=== PATIENT | female | born 1975 | race Caucasian/White ===

== ENCOUNTER 2016-11-10 09:05 | Emergency (ER) | payer OTHER ==
[~2016-11-10 09:05] MED LIST: ESTRACE1 MG PO; KLONOPIN TAB 00.5 MG PO; LEVOTHYROXINE25 MCG PO; LORTAB 5-325 M1 EACH PO; NORCO 5-325 TA1 EACH PO; ONDANSETRON ODT8 MG PO; PROMETHAZINE HC25 M1 PO; TOPAMAX 100 MG100 MG PO; VITAMIN B-12100 MCG PO; VITAMIN D35000 UNI1 PO; WELCHOL625 MG PO; ZOLOFT50 MG PO
[2016-11-10 10:02] LABS: HEMOGLOBIN 12.3 gm/dl (12.3-15.3); RED BLOOD COUNT 3.83 M/UL (4.00-5.10); WHITE BLOOD COUNT 7.9 K/UL (4.5-11.0)
[2016-11-10 10:23] LABS: BUN/CREATININE RATIO 18 (0-10)
[2017-05-07] MEDS ORDERED: NORFLEX 100 MG100 MG PO (10:34)
[2017-05-07] MEDS ORDERED: FLEXERIL 10 MG10 MG PO (10:35)
[2017-05-07] MEDS ORDERED: ROPINIROLE HCL1 MG PO (10:35)
[2017-05-07] MEDS ORDERED: [UNRECOGNIZED DRUG - OTHER] PO (10:38)
[2017-05-07] MEDS ORDERED: PANTOPRAZOLE SO40 MG PO (10:39)
[2017-05-07] MEDS ORDERED: DULOXETINE HCL60 MG PO (10:39)
[2017-05-08] MEDS ORDERED: PERCOCET 10-321 EACH PO ×2 (14:24)
[2017-05-08] MEDS ORDERED: LOVENOX40 MG/0.4 SQ (14:25)
== END 2016-11-10 13:35 | disposition home or self-care (01) ==
LOC: ER1 09:05
PROVIDERS: Student in an Organized Health Care Education/Training Program
DX: R10.11 Right upper quadrant pain (principal); R91.8 Other nonspecific abnormal finding of lung field; R11.0 Nausea; Z90.49 Acquired absence of other specified parts of digestive tract; F17.200 Nicotine dependence, unspecified, uncomplicated; Z88.5 Allergy status to narcotic agent; Z79.899 Other long term (current) drug therapy
CPT/HCPCS: 71020; 80053; 81001; 82150; 83690; 85025; 87086; 96374; 99284; J1885; J7040; J7050; Q9962

== ENCOUNTER 2016-11-20 09:21 | Emergency (ER) | payer OTHER ==
[2016-11-20 10:36] LABS: HEMOGLOBIN 11.7 gm/dl (12.3-15.3); RED BLOOD COUNT 3.66 M/UL (4.00-5.10)
[2016-11-20 10:47] LABS: BUN/CREATININE RATIO 13 (0-10)
[2017-05-07] MEDS ORDERED: NORFLEX 100 MG100 MG PO (10:34)
[2017-05-07] MEDS ORDERED: ROPINIROLE HCL1 MG PO (10:35)
[2017-05-07] MEDS ORDERED: FLEXERIL 10 MG10 MG PO (10:35)
[2017-05-07] MEDS ORDERED: [UNRECOGNIZED DRUG - OTHER] PO (10:38)
[2017-05-07] MEDS ORDERED: PANTOPRAZOLE SO40 MG PO (10:39)
[2017-05-07] MEDS ORDERED: DULOXETINE HCL60 MG PO (10:39)
[2017-05-08] MEDS ORDERED: PERCOCET 10-321 EACH PO ×2 (14:24)
[2017-05-08] MEDS ORDERED: LOVENOX40 MG/0.4 SQ (14:25)
== END 2016-11-20 11:50 | disposition home or self-care (01) ==
LOC: ER1 09:21
PROVIDERS: Emergency Medicine
DX: K29.70 Gastritis, unspecified, without bleeding (principal); K44.9 Diaphragmatic hernia without obstruction or gangrene; Z90.49 Acquired absence of other specified parts of digestive tract
CPT/HCPCS: 36415; 74022; 80053; 81001; 82150; 82550; 82553; 83690; 83874; 84484; 85025; 93005; 96365; 96375; 99284; J1200; J1642; J2270; J2405; J2765

== ENCOUNTER → 2017-01-05 | Outpatient (CLI) | payer OTHER ==
[~2017-01-05] MED LIST changes: +DULOXETINE HCL60 MG PO; +FLEXERIL 10 MG10 MG PO; +LOVENOX40 MG/0.4 SQ; +NORFLEX 100 MG100 MG PO; +PANTOPRAZOLE SO40 MG PO; +PERCOCET 10-321 EACH PO; +ROPINIROLE HCL1 MG PO; +[UNRECOGNIZED DRUG - OTHER] PO
== END ==
LOC: CT 08:59
DX: R33.9 Retention of urine, unspecified (principal)

== ENCOUNTER → 2017-05-01 | Outpatient (CLI) | payer OTHER ==
[~2017-05-01] MED LIST changes: -DULOXETINE HCL60 MG PO; -FLEXERIL 10 MG10 MG PO; -LOVENOX40 MG/0.4 SQ; -NORFLEX 100 MG100 MG PO; -PANTOPRAZOLE SO40 MG PO; -PERCOCET 10-321 EACH PO; -ROPINIROLE HCL1 MG PO; -[UNRECOGNIZED DRUG - OTHER] PO
== END ==
LOC: MRI 04-30 13:00
DX: M54.16 Radiculopathy, lumbar region (principal); M53.3 Sacrococcygeal disorders, not elsewhere classified; R20.0 Anesthesia of skin; R32 Unspecified urinary incontinence; M54.30 Sciatica, unspecified side; M25.551 Pain in right hip; M25.552 Pain in left hip; R10.2 Pelvic and perineal pain; M51.86 Other intervertebral disc disorders, lumbar region; M99.76 Connective tissue and disc stenosis of intervertebral foramina of lower extremity; S32.592D Other specified fracture of left pubis, subsequent encounter for fracture with routine healing; M84.352D Stress fracture, left femur, subsequent encounter for fracture with routine healing
CPT/HCPCS: 72148; 73721

== ENCOUNTER 2021-03-31 12:51 | Emergency (ER) | payer OTHER ==
[~2021-03-31 12:51] MED LIST changes: +24HR ALLERGY REL5 MG PO; +ASPIR 8181 MG PO; +AUGMENTIN 875-1 EACH PO; +BENTYL 10MG CAP10 MG PO; +BENTYL 20MG TAB20 MG PO; +BUSPAR 10MG10 MG PO; +CHANTIX1 EACH PO; +DULOXETINE HCL60 MG PO; +EMBEDA ER 60-21 EACH PO; +FLAGYL500 MG PO; +FLEXERIL 10 MG10 MG PO; +K-DUR TAB 20 M20 MEQ PO; +LIPITOR TAB 2020 MG PO; +LOVENOX40 MG/0.4 SQ; +METOPROLOL TART25 MG PO; +MICROZIDE12.5 MG PO; +NITROSTAT0.4 MG SL; +NORFLEX 100 MG100 MG PO; +NORVASC 5 MG TAB5 MG PO; +PANTOPRAZOLE SO40 MG PO; +PERCOCET 10-321 EACH PO; +PERCOCET 7.5-31 EACH PO; +ROPINIROLE HCL1 MG PO; +WELLBUTRIN SR150 M1 PO; +ZETIA10 MG PO; +ZITHROMAX500 MG PO; +ZOFRAN4 MG PO; +[UNRECOGNIZED DRUG - OTHER] PO
[2021-03-31 14:01] LABS: HEMOGLOBIN 17.9 gm/dl (12.3-15.3); RED BLOOD COUNT 5.02 M/UL (4.00-5.10); WHITE BLOOD COUNT 8.8 K/UL (4.5-11.0)
[2021-03-31 14:27] LABS: BUN/CREATININE RATIO 4 (0-10)
[2021-03-31] MEDS ORDERED: IBUPROFEN600 MG PO (19:00)
[2021-03-31] MEDS ORDERED: OMNICEF 300 MG300 MG PO (19:00)
== END 2021-03-31 19:01 | disposition home or self-care (01) ==
LOC: ER1 12:51
PROVIDERS: Physician Assistant Medical
DX: R07.81 Pleurodynia (principal); N39.0 Urinary tract infection, site not specified; R79.89 Other specified abnormal findings of blood chemistry; E78.5 Hyperlipidemia, unspecified; F17.200 Nicotine dependence, unspecified, uncomplicated; Z88.1 Allergy status to other antibiotic agents
CPT/HCPCS: 71101; 80053; 81001; 82550; 82553; 83690; 83735; 83874; 84484; 85025; 85379; 87086; 93005; 96374; 96375; 99284; J0696; J1885; Q9967

== ENCOUNTER 2021-04-22 05:51 | Emergency (ER) | payer OTHER ==
[~2021-04-22 05:51] MED LIST changes: +IBUPROFEN600 MG PO; +OMNICEF 300 MG300 MG PO
[2021-04-22 08:52] LABS: HEMOGLOBIN 15.7 gm/dl (12.3-15.3); RED BLOOD COUNT 4.7 M/UL (4.00-5.10); WHITE BLOOD COUNT 8.6 K/UL (4.5-11.0)
[2021-04-22 09:12] LABS: BUN/CREATININE RATIO 12 (0-10)
[2021-04-22] MEDS ORDERED: ZOFRAN ODT 4 MG4 MG SL (11:22)
[2021-04-22] MEDS ORDERED: TORADOL 10 MG T10 MG PO (11:22)
== END 2021-04-22 11:55 | disposition home or self-care (01) ==
LOC: ER1 05:51
PROVIDERS: Physician Assistant
DX: R07.9 Chest pain, unspecified (principal); R10.11 Right upper quadrant pain; R11.0 Nausea; F17.200 Nicotine dependence, unspecified, uncomplicated; Z90.49 Acquired absence of other specified parts of digestive tract; Z88.1 Allergy status to other antibiotic agents; Z86.16 Personal history of COVID-19
CPT/HCPCS: 71045; 80053; 81001; 82550; 82553; 83874; 84484; 85025; 85379; 93005; 96374; 96375; 99284; J1885; J2405

== ENCOUNTER 2021-10-07 11:58 | Emergency (ER) | payer OTHER ==
[~2021-10-07 11:58] MED LIST changes: +TORADOL 10 MG T10 MG PO; +ZOFRAN ODT 4 MG4 MG SL
[2021-10-07 13:35] LABS: HEMOGLOBIN 14.4 gm/dl (12.3-15.3); RED BLOOD COUNT 4.36 M/UL (4.00-5.10); WHITE BLOOD COUNT 5.2 K/UL (4.5-11.0)
[2021-10-07 13:47] LABS: BUN/CREATININE RATIO 6 (0-10)
[2021-10-07 16:19] LABS: RBC (AUTOMATED) 2500 10^6 (0); WBC (AUTOMATED 600 10^3 (0-5)
[2021-10-07 16:32] LABS: ESCHERICHIA COLI K1 Not Detected (Negative); HAEMOPHILUS INFLUENZAE Not Detected (Negative); LISTERIA MONOCYTOGENES Not Detected (Negative); NEISERRIA MENINGITIDIS Not Detected (Negative)
[2021-10-07 16:33] LABS: CRYPTOCOCCUS NEOFORMANS/GATTII Not Detected (Negative); CYTOMEGALOVIRUS Not Detected (Negative); ENTEROVIRUS Not Detected (Negative); HERPES SIMPLEX VIRUS 1 Not Detected (Negative); HERPES SIMPLEX VIRUS 2 Not Detected (Negative); HUMAN HERPESVIRUS 6 Not Detected (Negative); HUMAN PARECHOVIRUS Not Detected (Negative); STREPTOCOCCUS AGALACTIAE Not Detected (Negative); STREPTOCOCCUS PNEUMONIAE Not Detected (Negative); VARICELLA ZOSTER VIRUS Not Detected (Negative)
[2021-10-07 16:45] LABS: GLUCOSE,CSF 67 mg/dL (50-80); TOTAL PROTEIN,CSF 78 mg/dL (20-45)
[2021-10-07 17:10] LABS: RBC (AUTOMATED) 200 10^6 (0); WBC (AUTOMATED 0 10^3 (0-5)
== END 2021-10-07 17:36 | disposition other institution (70) ==
LOC: ER1 11:58
PROVIDERS: Student in an Organized Health Care Education/Training Program
DX: R51.9 Headache, unspecified (principal); M54.2 Cervicalgia; L02.11 Cutaneous abscess of neck
CPT/HCPCS: 62270; 70450; 80048; 82945; 84157; 85025; 85652; 86140; 87070; 87205; 87483; 89051; 99284

== ENCOUNTER 2021-12-26 20:22 | Emergency (ER) | payer OTHER | END 2021-12-26 23:50 | disposition home or self-care (01) | LOC: ER1 20:22 | DX: S80.11XA Contusion of right lower leg, initial encounter (principal); S30.0XXA Contusion of lower back and pelvis, initial encounter; Z90.710 Acquired absence of both cervix and uterus; W19.XXXA Unspecified fall, initial encounter | CPT/HCPCS: 72100; 73522; 73590; 99283 ==